=== PATIENT | female | born 1985 | race Caucasian/White ===

== ENCOUNTER 2016-09-26 21:34 | Inpatient (IN) | payer OTHER ==
--- NOTE | ~2016-09-26 | HP ---
History And Physical [address] [place]. [address] NAME: SHAHBAZ GARCIA : 83 STATUS : ADM IN [facility]#: [id number] AGE: 31 ADM/REG DATE : 09/27/16 MR#: [id number] REPORT SERV DATE: 09/27/16 DICTATED BY: MICHAEL JENSEN DATE: 09/27/16 REPORT STATUS : Draft TRANSCRIBED BY: MODKyler DATE: 09/27/16 DATE OF ADMISSION: 09/26/2016 POINT OF ENTRY: [facility] Emergency Department. PRIMARY CARE PHYSICIAN: None at this time. CHIEF COMPLAINT: Fevers, dysuria, and flank pain. HISTORY OF PRESENT ILLNESS: Ms Garcia is a 31-year-old female with a history of bipolar disease as well as PTSD, who presents to the emergency department today with a two-day history of fevers, chills, body aches, as well as dysuria and flank pain. The patient states she was in her usual state of health until yesterday when she started to develop bilateral flank pain, left greater than right, described as a feeling as if someone is sticking a knife in her sides. She then started to develop body aches, chills as well as fevers that continued to climb with reported T-max of about 103 degrees Fahrenheit. The patient also describes some dysuria, odor, and some cloudiness to her urine. She googled her symptoms and was concerned that she was having a kidney infection and then presented to the emergency department. Initial evaluation in the emergency department was notable for a fever of 101.8 degrees Fahrenheit, pulse is initially 134. Labs are notable for a white count of 13,400. Urinalysis was positive for infection. CT scan of the abdomen and pelvis concerning for some left-sided perirenal fat plane injection concerning for possible pyelonephritis as well as nonobstructing nephrolithiasis of the left kidney. Lactic acid was within normal limits. She was given IV Rocephin and fluids, and admitted to the Hospitalist Service. REVIEW OF SYSTEMS: Comprehensive review of systems otherwise negative unless listed in history of present illness. PAST MEDICAL HISTORY: 1. Bipolar disease. 2. PTSD. PAST SURGICAL HISTORY: 1. Two C-sections. 2. Cholecystectomy. 3. Tubal ligation. ALLERGIES: NO KNOWN DRUG ALLERGIES. HOME MEDICATIONS: 1. Prozac 20 mg daily. 2. Lamictal 100 mg daily. History And Physical [address] [place]. [address] NAME: SHAHBAZ GARCIA : [birth year] STATUS : ADM IN PAT#: [id number] AGE: 31 ADM/REG DATE : 09/27/16 MR#: [id number] REPORT SERV DATE: 09/27/16 DICTATED BY: MICHAEL JENSEN DATE: 09/27/16 REPORT STATUS : Draft TRANSCRIBED BY: ROLAND DATE: 09/27/16 3. Multivitamin one tablet daily. 4. Geodon 80 mg b.i.d. SOCIAL HISTORY: Denies any alcohol or illicits. Does smoke about a half pack per day. 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 FAMILY MEDICAL HISTORY: Mother otherwise healthy. Father kidney stones and possible undiagnosed psychiatric disease. Siblings, she is an only child. LABS AND IMAGIN. White count is 13.4, hemoglobin is 14.0, hematocrit is 41.3, and platelet count is 219. 2. Sodium is 135, potassium 4.1, chloride 101, carbon dioxide 24, BUN 10, creatinine 0.90, glucose is 89, calcium is 8.5, protein is 7.4, albumin is 3.8, bilirubin is 0.6, ALT is 19, AST 31, and alkaline phosphatase is 67. 3. Lactic acid is 1.3. 4. Lipase is 58. 5. Urinalysis; spec gravity is 1.019 hazy with moderate leukocyte esterase, 49 red with 85 white blood cells per high power field with large blood. 6. CT scan of the abdomen and pelvis shows left perirenal fat plane injection concerning for possible pyelonephritis in the appropriate clinical setting. Alternatively this could represent sequela of recently resolved ureteral obstruction, small 1-2 mm nonobstructing calculus left lower pole kidney, although no left ureteral calculus, normal appendix, right upper pelvis. PHYSICAL EXAMINATION: VITAL SIGNS: Temperature 101.8 degrees Fahrenheit, pulse is 134, respirations 18, saturating 90% on room air, and blood pressure 127/73. On recheck, pulse is now 100 with a blood pressure of 94/48, MAP of 70. GENERAL: The patient is awake, alert, and in no acute distress. Resting comfortably in bed. She is a well-developed, well-nourished, female. is at bedside. HEENT: Atraumatic and normocephalic. Moist mucous membranes. Pupils are equal, round, reactive to light and accommodation. Extraocular eye movements intact. No scleral icterus. NECK: No jugular venous distention. No carotid bruits. CARDIAC: Tachycardic rate, regular rhythm. No murmurs or gallops. Normal S1, S2. LUNGS: Clear to auscultation bilaterally. No wheezes, rhonchi, or crackles. ABDOMEN: Soft, nontender, and nondistended with good bowel sounds. No rebound, guarding, or rigidity. : She does have some flank and CVA tenderness on palpation, left greater than right. EXTREMITIES: Warm and well perfused. No cyanosis, clubbing, or edema. SKIN: Warm and dry. PSYCH: Affect appropriate. NEURO: Alert and oriented x3. Cranial nerves 2 through 12 grossly intact. Speech is normal. Gait not assessed. ASSESSMENT AND PLAN: Ms Garcia is a 31-year-old female who presents with a two-day history of fevers, body aches, chills, dysuria, and flank pain and found to have evidence of pyelonephritis as well as sepsis. History And Physical [address] [address] NAME: SHAHBAZ GARCIA : 83 STATUS : ADM IN [facility]#: [id number] AGE: 31 ADM/REG DATE : 09/27/16 MR#: [id number] REPORT SERV DATE: 09/27/16 DICTATED BY: MICHAEL JENSEN DATE: 09/27/16 REPORT STATUS : Draft TRANSCRIBED BY: ROLAND DATE: 09/27/16 PROBLEM LIST: 1. Pyelonephritis. 2. Sepsis. 3. Nonobstructing nephrolithiasis. 4. Active tobacco abuse. 5. History of bipolar disease. PLAN: 1. Pyelonephritis. We will place the patient on IV antibiotics. Given previous urine culture showing Enterococcus faecalis, we will place the patient on Unasyn which will cover the Enterococcus faecalis as well as provide appropriate gram-positive and gram- negative coverage for other potential organisms. We will narrow once urine culture results. 2. Sepsis. The patient meets criteria with fevers, tachycardia, and leukocytosis. Lactic acid is within normal limits. Provide aggressive IV fluid hydration as well as IV antibiotics. Follow up urine and blood cultures. 3. Active tobacco abuse. Providing nicotine replacement protocol. 4. DVT prophylaxis. Lovenox subcu. CODE STATUS: The patient wished to be full code. MELQUIADES/ROLAND Michael Jensen MD / [id number]
--- NOTE | ~2016-09-26 | DS ---
Discharge Summary [facility] [address] [place]. [address] NAME: SHAHBAZ GARCIA : 83 STATUS : DIS IN PAT#: [id number] AGE: 31 ADM/REG DATE : 09/27/16 MR#: [id number] REPORT SERV DATE: 09/29/16 DICTATED BY: MIKAL JOHN DATE: 09/29/16 REPORT STATUS : Draft TRANSCRIBED BY: MODL DATE: 09/29/16 ADMISSION DATE: 09/27/2016 DISCHARGE DATE: 09/29/2016 DISCHARGE DIAGNOSES: 1. Sepsis. 2. Pyelonephritis/urinary tract infection. 3. Active tobacco use. 4. History of bipolar and posttraumatic stress disorder. 5. Nephrolithiasis. 6. Mild hypotension, which is resolved. DISCHARGE MEDICINES: Prozac 20 mg daily, Lamictal 100 mg daily, multivitamin one tablet daily, Geodon 80 mg twice a day, and Ceftin 500 mg twice a day for four more days. HISTORY OF PRESENT ILLNESS: A very pleasant 31-year-old white female who originally presented with fevers, dysuria, and flank pain. Please see initial H and P of Dr. Ben Harris as the patient is admitted to the Hospitalist Service for further evaluation and treatment. Initially started on empiric antibiotic therapy. Cultures were obtained. Lab work was followed. 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 HOSPITAL COURSE: The patient was continued on her IV antibiotics, which she tolerated well. Her white blood cell count trended downward from a high of 13.4 to 9.4, 8.3, and 6.4. She maintained a slight low-grade temperature of approximately 100.5, this also subsided and has resolved. Her procalcitonin checks have been low and trending downward from 0.34 to 0.21. She was given one fluid bolus and albumin for some mild hypotension, but her orthostatics are now within normal limits. She had a urinary culture that did not grow anything significant and a repeat UA was also within normal limits. Blood cultures have also been negative as well. Symptomatically, she has improved, feeling better, eating, resting in bed. She will discharge home today on 09/29/2016, p.o. antibiotics for four more days as described above. I have instructed her to establish primary care for followup, instructed her to stop smoking and to follow up with [facility] as scheduled as well and to stay well hydrated. She is in agreement with this plan going forward. I have updated the patient and patient's mother at bedside. Questions were answered. Please note greater than 30 minutes was spent on this discharge for medication teaching, followup planning, and further disposition. DICTATED BY: Mikal John NP [facility]/ROLAND Discharge Summary [address] [place]. [address] NAME: SHAHBAZ GARCIA : 83 STATUS : DIS IN PAT#: [id number] AGE: 31 ADM/REG DATE : 09/27/16 MR#: [id number] REPORT SERV DATE: 09/29/16 DICTATED BY: MIKAL JOHN [facility] DATE: 09/29/16 REPORT STATUS : Draft TRANSCRIBED BY: ROLAND DATE: 09/29/16 Mikal John NP / [id number] CC: Angela Aviles M.D.
[2016-09-26 20:56] LABS: BASOPHILS 0.1 %; BASOPHILS ABSOLUTE 0.02 10/3/uL (0.0-0.16); EOSINOPHILS 0.1 %; EOSINOPHILS ABSOLUTE 0.01 10/3/uL (0.0-0.53); ER CBC TAT 0 Hrs 08 Mins; IMMATURE GRANULOCYTES 0.3 %; IMMATURE GRANULOCYTES ABSOLUTE 0.04 10/3/uL (0.0-0.11); LYMPHOCYTES 8.8 %; LYMPHOCYTES ABSOLUTE 1.17 10/3/uL (0.67-4.30); MEAN CORPUS HGB CONC 33.9 g/dL (32.0-36.0); MEAN CORPUSCULAR HEMOGLOB 30.4 pg (26.0-34.0); MEAN CORPUSCULAR VOLUME 89.6 fL (80-100); MEAN PLATELET VOLUME 9.6 fL (9.2-13.0); MONOCYTES 7.9 %; MONOCYTES ABSOLUTE 1.06 10/3/uL (0.21-1.20); NEUTROPHILS 82.8 %; NEUTROPHILS ABSOLUTE 11.05 10/3/uL (2.02-8.40); RBC DISTRIBUTION WIDTH 12.8 % (12.0-16.0); RED CELL COUNT 4.61 10/6/uL (4.0-5.6); WHITE BLOOD CELLS 13.4 10/3/uL (4.5-10.5)
[2016-09-26 20:58] LABS: HEMATOCRIT 41.3 % (36.0-48.0); MANUAL DIFF NO %; PLATELET COUNT 219 10/3/uL (150-400)
[2016-09-26 21:10] LABS: A/G RATIO 1.1 (0.7-1.9); ALBUMIN 3.8 G/DL (3.5-5.0); ALKALINE PHOSPHATASE 67 U/L (45-117); BUN (BLOOD UREA NITROGEN) 10 MG/DL (6-23); CALCIUM, SERUM 8.5 MG/DL (8.5-10.4); CHLORIDE, SERUM 101 MMOL/L (96-112); GFR AFRICAN AMERICAN 98 ML/MIN (>=60); GFR NON AFRICAN AMERICAN 85 ML/MIN (>=60); GLOBULIN 3.6 G/DL (2.5-4.1); SGPT(ALT) 19 U/L (5-65); TOTAL BILIRUBIN 0.6 MG/DL (0-1.2); TOTAL PROTEIN 7.4 G/DL (6.0-8.5)
[2016-09-26 21:11] LABS: CO2 (CARBON DIOXIDE) 24 MMOL/L (24-34); GLUCOSE, SERUM 89 MG/DL (60-99); POTASSIUM, SERUM 4.1 MMOL/L (3.5-5.3); SGOT(AST) 31 U/L (5-40); SODIUM, SERUM 135 MMOL/L (135-148)
[2016-09-26 21:14] LABS: LACTATE 1.3 MMOL/L (0.3-2.4)
[2016-09-26 21:33] LABS: ASCORBIC ACID (UR NOT ORDER) NEG (NEG); BILIRUBIN, URINE NEGATIVE (NEG); ER URINALYSIS TAT 0 Hrs 11 Mins; KETONE, URINE NEGATIVE (NEG); LEUKOCYTE ESTERASE(NOT OR MOD (NEG); NITRITE (URINE) NEG (NEG); WBC (NOT ORDERED) (RFLEX) 85 (0-5)
[2016-09-26] MEDS ORDERED: GEODON80 PO (23:51)
[2016-09-26] MEDS ORDERED: LAMICTAL10 PO (23:51)
[2016-09-26] MEDS ORDERED: PROZAC PO (23:51)
[2016-09-26] MEDS ORDERED: THERGRANM PO (23:52)
[2016-09-27 04:39] LABS: PROCALCITONIN 0.34 ng/mL (<0.5)
[2016-09-27 07:42] LABS: BASOPHILS 0.2 %; BASOPHILS ABSOLUTE 0.02 10/3/uL (0.0-0.16); EOSINOPHILS 0.1 %; EOSINOPHILS ABSOLUTE 0.01 10/3/uL (0.0-0.53); HEMATOCRIT 38.1 % (36.0-48.0); HEMOGLOBIN 12.9 g/dL (12.0-16.0); IMMATURE GRANULOCYTES 0.2 %; IMMATURE GRANULOCYTES ABSOLUTE 0.02 10/3/uL (0.0-0.11); LYMPHOCYTES 12.9 %; MEAN CORPUS HGB CONC 33.9 g/dL (32.0-36.0); MEAN CORPUSCULAR HEMOGLOB 30.5 pg (26.0-34.0); MEAN CORPUSCULAR VOLUME 90.1 fL (80-100); MEAN PLATELET VOLUME 9.6 fL (9.2-13.0); MONOCYTES 7.1 %; MONOCYTES ABSOLUTE 0.72 10/3/uL (0.21-1.20); NEUTROPHILS 79.5 %; NEUTROPHILS ABSOLUTE 8.02 10/3/uL (2.02-8.40); PLATELET COUNT 170 10/3/uL (150-400); RBC DISTRIBUTION WIDTH 12.8 % (12.0-16.0); RED CELL COUNT 4.23 10/6/uL (4.0-5.6); WHITE BLOOD CELLS 10.1 10/3/uL (4.5-10.5)
[2016-09-27 07:45] LABS: MANUAL DIFF NO %
[2016-09-27 07:56] LABS: BUN (BLOOD UREA NITROGEN) 8 MG/DL (6-23); CALCIUM, SERUM 7.7 MG/DL (8.5-10.4); CHLORIDE, SERUM 106 MMOL/L (96-112); CO2 (CARBON DIOXIDE) 26 MMOL/L (24-34); CREATININE 0.78 MG/DL (0.55-1.02); GFR AFRICAN AMERICAN 117 ML/MIN (>=60); GFR NON AFRICAN AMERICAN 101 ML/MIN (>=60); GLUCOSE, SERUM 95 MG/DL (60-99); POTASSIUM, SERUM 3.7 MMOL/L (3.5-5.3); SODIUM, SERUM 137 MMOL/L (135-148)
[2016-09-28 10:08] LABS: BASOPHILS 0.1 %; BASOPHILS ABSOLUTE 0.01 10/3/uL (0.0-0.16); EOSINOPHILS 1.2 %; EOSINOPHILS ABSOLUTE 0.11 10/3/uL (0.0-0.53); HEMOGLOBIN 11.4 g/dL (12.0-16.0); IMMATURE GRANULOCYTES 0.2 %; IMMATURE GRANULOCYTES ABSOLUTE 0.02 10/3/uL (0.0-0.11); LYMPHOCYTES 22.5 %; LYMPHOCYTES ABSOLUTE 2.12 10/3/uL (0.67-4.30); MEAN CORPUS HGB CONC 33.9 g/dL (32.0-36.0); MEAN CORPUSCULAR HEMOGLOB 30.7 pg (26.0-34.0); MEAN CORPUSCULAR VOLUME 90.6 fL (80-100); MONOCYTES 10.9 %; MONOCYTES ABSOLUTE 1.03 10/3/uL (0.21-1.20); NEUTROPHILS 65.1 %; NEUTROPHILS ABSOLUTE 6.14 10/3/uL (2.02-8.40); PLATELET COUNT 184 10/3/uL (150-400); RBC DISTRIBUTION WIDTH 12.8 % (12.0-16.0); RED CELL COUNT 3.71 10/6/uL (4.0-5.6); WHITE BLOOD CELLS 9.4 10/3/uL (4.5-10.5)
[2016-09-28 10:16] LABS: HEMATOCRIT 33.6 % (36.0-48.0); MANUAL DIFF NO %
[2016-09-28 10:17] LABS: BUN (BLOOD UREA NITROGEN) 5 MG/DL (6-23); CALCIUM, SERUM 8.1 MG/DL (8.5-10.4); CHLORIDE, SERUM 107 MMOL/L (96-112); CO2 (CARBON DIOXIDE) 28 MMOL/L (24-34); CREATININE 0.63 MG/DL (0.55-1.02); GFR AFRICAN AMERICAN 138 ML/MIN (>=60); GFR NON AFRICAN AMERICAN 119 ML/MIN (>=60); GLUCOSE, SERUM 87 MG/DL (60-99); SODIUM, SERUM 140 MMOL/L (135-148)
[2016-09-28 11:49] LABS: BASOPHILS 0.4 %; BASOPHILS ABSOLUTE 0.03 10/3/uL (0.0-0.16); EOSINOPHILS 1.2 %; HEMATOCRIT 33.9 % (36.0-48.0); HEMOGLOBIN 11.7 g/dL (12.0-16.0); IMMATURE GRANULOCYTES 0.4 %; IMMATURE GRANULOCYTES ABSOLUTE 0.03 10/3/uL (0.0-0.11); LYMPHOCYTES 19.9 %; LYMPHOCYTES ABSOLUTE 1.65 10/3/uL (0.67-4.30); MEAN CORPUS HGB CONC 34.5 g/dL (32.0-36.0); MEAN CORPUSCULAR HEMOGLOB 31.2 pg (26.0-34.0); MEAN CORPUSCULAR VOLUME 90.4 fL (80-100); MEAN PLATELET VOLUME 9.5 fL (9.2-13.0); MONOCYTES ABSOLUTE 0.75 10/3/uL (0.21-1.20); NEUTROPHILS 69.1 %; NEUTROPHILS ABSOLUTE 5.75 10/3/uL (2.02-8.40); PLATELET COUNT 189 10/3/uL (150-400); RBC DISTRIBUTION WIDTH 12.7 % (12.0-16.0); RED CELL COUNT 3.75 10/6/uL (4.0-5.6); WHITE BLOOD CELLS 8.3 10/3/uL (4.5-10.5)
[2016-09-28 11:51] LABS: MANUAL DIFF NO %
[2016-09-28 12:01] LABS: BUN (BLOOD UREA NITROGEN) 5 MG/DL (6-23); CALCIUM, SERUM 8.3 MG/DL (8.5-10.4); CHLORIDE, SERUM 109 MMOL/L (96-112); CO2 (CARBON DIOXIDE) 28 MMOL/L (24-34); CREATININE 0.59 MG/DL (0.55-1.02); GFR AFRICAN AMERICAN 141 ML/MIN (>=60); GFR NON AFRICAN AMERICAN 121 ML/MIN (>=60); PHOSPHORUS, SERUM 2.2 MG/DL (2.5-4.5); POTASSIUM, SERUM 3.7 MMOL/L (3.5-5.3); SODIUM, SERUM 144 MMOL/L (135-148)
[2016-09-28 12:02] LABS: GLUCOSE, SERUM 121 MG/DL (60-99)
[2016-09-28 12:39] LABS: ASCORBIC ACID (UR NOT ORDER) NEG (NEG); BILIRUBIN, URINE NEGATIVE (NEG); KETONE, URINE NEGATIVE (NEG); LEUKOCYTE ESTERASE(NOT OR NEG (NEG); WBC (NOT ORDERED) (RFLEX) 3 (0-5)
[2016-09-29 05:51] LABS: BASOPHILS 0.2 %; BASOPHILS ABSOLUTE 0.01 10/3/uL (0.0-0.16); EOSINOPHILS 2.8 %; EOSINOPHILS ABSOLUTE 0.18 10/3/uL (0.0-0.53); HEMATOCRIT 32.4 % (36.0-48.0); HEMOGLOBIN 10.9 g/dL (12.0-16.0); IMMATURE GRANULOCYTES 0.2 %; IMMATURE GRANULOCYTES ABSOLUTE 0.01 10/3/uL (0.0-0.11); LYMPHOCYTES 32.6 %; LYMPHOCYTES ABSOLUTE 2.07 10/3/uL (0.67-4.30); MEAN CORPUS HGB CONC 33.6 g/dL (32.0-36.0); MEAN CORPUSCULAR HEMOGLOB 30.6 pg (26.0-34.0); MEAN PLATELET VOLUME 9.9 fL (9.2-13.0); MONOCYTES 9.9 %; MONOCYTES ABSOLUTE 0.63 10/3/uL (0.21-1.20); NEUTROPHILS 54.3 %; NEUTROPHILS ABSOLUTE 3.45 10/3/uL (2.02-8.40); PLATELET COUNT 187 10/3/uL (150-400); RBC DISTRIBUTION WIDTH 12.8 % (12.0-16.0); RED CELL COUNT 3.56 10/6/uL (4.0-5.6); WHITE BLOOD CELLS 6.4 10/3/uL (4.5-10.5)
[2016-09-29 05:52] LABS: MANUAL DIFF NO %
[2016-09-29 06:01] LABS: BUN (BLOOD UREA NITROGEN) 6 MG/DL (6-23); CALCIUM, SERUM 8.2 MG/DL (8.5-10.4); CHLORIDE, SERUM 108 MMOL/L (96-112); CO2 (CARBON DIOXIDE) 27 MMOL/L (24-34); CREATININE 0.58 MG/DL (0.55-1.02); GFR AFRICAN AMERICAN 141 ML/MIN (>=60); GFR NON AFRICAN AMERICAN 122 ML/MIN (>=60); GLUCOSE, SERUM 125 MG/DL (60-99); POTASSIUM, SERUM 4.1 MMOL/L (3.5-5.3); SODIUM, SERUM 138 MMOL/L (135-148)
[2016-09-29 06:02] LABS: PHOSPHORUS, SERUM 3.6 MG/DL (2.5-4.5)
[2016-09-29 06:53] LABS: PROCALCITONIN 0.21 ng/mL (<0.5)
[2016-09-29] MEDS ORDERED: CEFT5 PO (12:36)
== END 2016-09-29 13:18 | disposition home or self-care (01) | DRG 872 ==
LOC: ER 21:34 → 4SO 09-27 00:54 → IMCU 09-27 15:29
PROVIDERS: Internal Medicine; Nurse Practitioner
DX: A41.9 Sepsis, unspecified organism (principal); N12 Tubulo-interstitial nephritis, not specified as acute or chronic; N39.0 Urinary tract infection, site not specified; N20.0 Calculus of kidney; F17.210 Nicotine dependence, cigarettes, uncomplicated
CPT/HCPCS: 74176; 80048; 80053; 81001; 82533; 83605; 83690; 83735; 84100; 84145; 85025; 87040; 87086; 87641; 96374; 96375; 99285; A9270-GY; J0295; J2405; J2543; J3370; P9047